=== PATIENT | male | born 1980 | race Caucasian/White ===

== ENCOUNTER 2019-03-12 19:34 | Emergency (ER) | payer MEDICAID ==
[~2019-03-12] VITALS: Ht 182.9 cm; Wt 136.4 kg
[2019-03-12 19:53] VITALS: Ht 182.9 cm; Wt 136.4 kg
[2019-03-12] MEDS ORDERED: LISINOPRIL-HCT1 EAC4 PO (19:56)
[2019-03-12] MEDS ORDERED: LOPRESSOR25 MG PO (19:57)
[2019-03-12] MEDS ORDERED: BUSPAR5 MG PO (19:58)
[2019-03-12] MEDS ORDERED: BENADRYL25 MG PO (19:59)
[2019-03-12 20:22] LABS: BASOPHILS 0.3 % (0-2); EOSINOPHILS 2.3 % (0-7); HEMATOCRIT 41.7 % (42.0-54.0); HEMOGLOBIN 14.8 g/dL (13.5-17.5); IMMATURE GRANULOCYTES 0.8 % (0-5); LYMPHOCYTES 31.9 % (15-50); MCH 33.7 pg (26.0-34.0); MCHC 35.5 g/dL (31.0-37.0); MEAN PLATELET VOLUME 9.5 fL (7.4-10.4); NEUTROPHILS 52.7 % (40-80); PLATELET COUNT 129 10x3/uL (130-400); RBC 4.39 10x6/uL (4.20-6.10); RDW 12.2 % (11.5-14.5); WBC 6.5 10x3/uL (4.8-10.8)
[2019-03-12 20:31] LABS: APTT 27.7 SECONDS (22.8-39.4); PROTIME 12.7 SECONDS (11.6-15.0)
[2019-03-12 20:35] LABS: CALC OSMOLALITY 287 mosm/kg (275-300); CALCIUM 9.2 mg/dL (8.5-10.1); CARBON DIOXIDE 28.7 mmol/L (21.0-32.0); CHLORIDE - SERUM 103 mmol/L (98-107); CREATININE - SERUM 0.9 mg/dL (0.6-1.3); GLUCOSE 110 mg/dL (74-106); POTASSIUM - SERUM 4.1 mmol/L (3.5-5.1); SODIUM 142 mmol/L (136-145); UREA NITROGEN 24 mg/dL (7-18); eGFR NON AFRICAN AMERICAN > 90 mL/min (90-120)
[2019-03-12 20:51] LABS: ALBUMIN 3.9 g/dL (3.4-5.0); ALKALINE PHOSPHATASE 103 U/L (46-116); ALT (SGPT) 60 U/L (10-68); BILIRUBIN - TOTAL 0.68 mg/dL (0.2-1.3); CKMB 1.4 U/L (0.0-3.6); CREATINE KINASE 145 UL (21-232); MAGNESIUM - SERUM 2.2 mg/dL (1.8-2.4); PROTEIN - SERUM 7.9 g/dL (6.4-8.2); TROPONIN-I < 0.017 ng/mL (0.000-0.060)
[2019-03-12 23:45] VITALS: BP 131/57
== END 2019-03-12 23:45 | disposition home or self-care (01) ==
LOC: D.ER 19:34
PROVIDERS: Family Medicine
DX: K21.9 Gastro-esophageal reflux disease without esophagitis (principal); I10 Essential (primary) hypertension; Z72.0 Tobacco use

== ENCOUNTER 2019-09-12 12:27 | Emergency (ER) | payer MEDICAID ==
[~2019-09-12] VITALS: Ht 182.9 cm; Wt 133.2 kg
[~2019-09-12 12:27] MED LIST: BENADRYL25 MG PO; BUSPAR5 MG PO; LISINOPRIL-HCT1 EAC4 PO; LOPRESSOR25 MG PO
[2019-09-12 12:33] VITALS: BP 115/67; Ht 182.9 cm; Wt 133.2 kg
[2019-09-12 12:57] LABS: BASOPHILS 0.2 % (0-2); EOSINOPHILS 1.1 % (0-7); HEMATOCRIT 41.8 % (42.0-54.0); HEMOGLOBIN 14.8 g/dL (13.5-17.5); IMMATURE GRANULOCYTES 0.5 % (0-5); LYMPHOCYTES 21.6 % (15-50); MCH 33.9 pg (26.0-34.0); MCHC 35.4 g/dL (31.0-37.0); MCV 95.9 fL (80.0-100.0); MEAN PLATELET VOLUME 9.3 fL (7.4-10.4); MONOCYTES 13.4 % (2-11); NEUTROPHILS 63.2 % (40-80); PLATELET COUNT 124 10x3/uL (130-400); RBC 4.36 10x6/uL (4.20-6.10); RDW 12.1 % (11.5-14.5); WBC 6.6 10x3/uL (4.8-10.8)
[2019-09-12 13:22] LABS: ANION GAP 10.6 mmol/L (8-16); CALCIUM 9.4 mg/dL (8.5-10.1); CARBON DIOXIDE 27.4 mmol/L (21.0-32.0); CREATININE - SERUM 1.3 mg/dL (0.6-1.3)
[2019-09-12 13:28] LABS: ALBUMIN 4.2 g/dL (3.4-5.0); BILIRUBIN - TOTAL 1.29 mg/dL (0.2-1.3); PROTEIN - SERUM 8.3 g/dL (6.4-8.2)
== END 2019-09-12 14:40 | disposition left against medical advice (07) ==
LOC: D.ER 12:27
PROVIDERS: Family Medicine
DX: R10.30 Lower abdominal pain, unspecified (principal)